=== PATIENT | female | born 1965 | race Caucasian/White ===

== ENCOUNTER → 2021-02-14 | Outpatient (CLI) | payer BC | LOC: KOH-I 14:52 | DX: Z87.891 Personal history of nicotine dependence (principal); R91.1 Solitary pulmonary nodule | CPT/HCPCS: 71271 ==

== ENCOUNTER → 2022-03-11 | Outpatient (CLI) | payer BC | LOC: KOH-I 08:30 | DX: Z87.891 Personal history of nicotine dependence (principal); R91.1 Solitary pulmonary nodule; N63.10 Unspecified lump in the right breast, unspecified quadrant | CPT/HCPCS: 71271 ==

== ENCOUNTER → 2022-04-09 | Outpatient (CLI) | payer BC | LOC: ECHO 10:27 | DX: I31.3 Pericardial effusion (noninflammatory) (principal) | CPT/HCPCS: ECHO; 93306 ==